=== PATIENT | female | born 1945 | race African-American/Black ===

== ENCOUNTER 2018-11-08 07:15 | Day surgery (SDC) | payer OTHER ==
[2018-11-03 11:40] VITALS: BMI 31.9
[2018-11-08] MEDS ORDERED: PROPOFOL 20 ML ONE ×6 (08:21)
[2018-11-08 08:56] VITALS: BP 123/62; PULSE 74; TEMP 97.8
--- NOTE | 2018-11-14 13:05 | PATH ---
Surgical Pathology Report Patient Name: SAMANTHA [facility]. Rec. #: [id number] /Age/Gender: 1945 (Age: 73) / F Account: [id number] Location: [facility] Taken: 11/08/2018 Received: 11/08/2018 Reported: 11/10/2018 Physicians: Phan Olmedo M.D. Specimen(s) Received A: BX SECOND PORTION DUODENUM B: BX GASTRIC ANTRUM Clinical History GERD, family history colon cancer Operative diagnosis: Gastritis, diverticulosis Final Diagnosis A. DUODENUM, SECOND PORTION, BIOPSY: DUODENAL MUCOSA WITHOUT SIGNIFICANT PATHOLOGIC FINDINGS. B. GASTRIC ANTRUM, BIOPSY: GASTRIC ANTRAL MUCOSA WITH SEVERE CHRONIC ACTIVE GASTRITIS. IMMUNOHISTOCHEMICAL STAIN FOR H. PYLORI IS POSITIVE (NUMEROUS). Electronically Signed Erin Cintron M.D. Gross Description A. Received in formalin, labeled, "second portion duodenum" is one piece of yellow-alvarez, tissue 0.3 cm in greatest dimension. Entirely submitted in one cassette. B. Received in formalin, labeled "gastric antrum" are two pieces of light alvarez, tissue, each of the submitted centimeters in greatest dimension. Entirely submitted in one cassette. AE/11/08/2018 ebram/11/08/2018
== END 2018-11-08 09:33 | disposition home or self-care (01) ==
LOC: FASU-ENDO 07:15
PROVIDERS: ATTEND Internal Medicine Gastroenterology
PROC: 0DB98ZX Excision of Duodenum, Via Natural or Artificial Opening Endoscopic, Diagnostic (ICD-10-PCS; 2018-11-08)
PROC: 0DB68ZX Excision of Stomach, Via Natural or Artificial Opening Endoscopic, Diagnostic (ICD-10-PCS; 2018-11-08)
PROC: 0DJD8ZZ Inspection of Lower Intestinal Tract, Via Natural or Artificial Opening Endoscopic (ICD-10-PCS; principal; 2018-11-08 08:24)
DX: Z12.11 Encounter for screening for malignant neoplasm of colon (principal); K29.50 Unspecified chronic gastritis without bleeding; B96.81 Helicobacter pylori [H. pylori] as the cause of diseases classified elsewhere; K57.30 Diverticulosis of large intestine without perforation or abscess without bleeding; Z80.0 Family history of malignant neoplasm of digestive organs; R12 Heartburn
CPT/HCPCS: 43239; G0105; 82962; 88305-TC; 88342-TC